=== PATIENT | male | born 1965 | race Caucasian/White ===

== ENCOUNTER 2020-11-15 19:29 | Observation (INO) ==
[2020-11-15] MEDS ORDERED: Morphine Sulfate 2 MG/ML SYRINGE IVP PRN (20:05)
[2020-11-15] MEDS ORDERED: Tdap (Boostrix) Vaccine 0.5 ML SYRINGE IM ONE (20:07)
[2020-11-15 20:16] LABS: Basophils # 0.1 K/mcL (0.0-0.2); Basophils % 1.4 %; Eosinophils % 0.4 %; Hematocrit 40.9 % (37.5-50.1); Immature Granulocytes % 0.4 % (0-4); Lymphocytes # 1.6 K/mcL (0.6-4.6); Lymphocytes % 23.2 %; Mean Corpuscular HGB Conc 34.2 g/dL (31.6-35.5); Mean Corpuscular Hemoglobin 34.5 pg (28.0-33.3); Mean Corpuscular Volume 100.7 fL (83.0-100.0); Mean Platelet Volume 10.2 fL (9.4-12.4); Monocytes # 0.6 K/mcL (0.0-1.3); Monocytes % 8.8 %; Neutrophils # 4.7 K/mcL (1.6-8.9); Platelet Count 208 K/mcL (140-400); Red Blood Count 4.06 M/mcL (4.19-5.50); Red Cell Distribution Width 13.3 % (11.5-14.5); Segmented Neutrophils % 65.8 %; White Blood Count 7.1 K/mcL (4.3-11.1)
[2020-11-15 20:17] LABS: Prothrombin Time 11.5 Seconds (9.4-12.1)
[2020-11-15 20:19] LABS: Activated Partial Thrombo Time 29.5 Seconds (26.0-36.0)
[2020-11-15 20:35] LABS: Alanine Aminotransferase 39 Units/L (7-52); Albumin 3.7 g/dL (3.5-5.7); Albumin/Globulin Ratio 1.3 (1.1-2.2); Alkaline Phosphatase 57 Units/L (34-104); Aspartate Amino Transferase 27 Units/L (13-39); BUN/Creatinine Ratio 8 (6-26); Bilirubin,Direct 0.2 mg/dL (0.0-0.2); Bilirubin,Indirect 0.5 mg/dL (0.0-1.0); Bilirubin,Total 0.7 mg/dL (0.3-1.0); Blood Urea Nitrogen 5 mg/dL (6-20); Calcium 8.6 mg/dL (8.6-10.3); Carbon Dioxide 21 mEq/L (23-29); Chloride 104 mEq/L (98-107); Ethanol 126 mg/dL (Less than 10); Globulin 2.8 g/dL (2.4-3.5); Glucose 94 mg/dL (70-105); Lipase 38 Units/L (11-82); Osmolality,Calculated 283 (280-300); Sodium 138 mEq/L (136-145); Total Protein 6.5 g/dL (6.4-8.9); Troponin I < 0.03 ng/mL (< 0.04); eGFR For African Americans > 60 (> 60); eGFR For Non-African Americans > 60 (> 60)
[2020-11-15] MEDS ORDERED: levoFLOXacin 750 MG TABLET PO ONE (20:43)
[2020-11-15] MEDS ORDERED: metroNIDAZOLE 500 MG TABLET PO ONE (20:43)
[2020-11-15] MEDS ORDERED: Naloxone 0.4 MG/ML INJ IVP PRN (22:10)
[2020-11-15] MEDS ORDERED: Ondansetron ODT 4 MG TAB.RAPDIS SL PRN (22:10)
[2020-11-15] MEDS ORDERED: 0.9 % Sodium Chloride 1,000 ML IVC SCH (22:15)
[2020-11-15] MEDS ORDERED: Ipratropium/Albuterol Neb 3 ML IH PRN (22:18)
[2020-11-15] MEDS ORDERED: *HR* LORazepam 2 MG/ML VIAL IVP PRN (22:18)
[2020-11-15] MEDS: Folic Acid 1 MG TABLET PO SCH (23:35)
[2020-11-15] MEDS: Thiamine (B-1) 100 MG TABLET PO SCH (23:35)
[2020-11-15] MEDS ORDERED: Prochlorperazine 10 MG/2 ML VIAL IVP PRN (23:56)
[2020-11-16] MEDS ORDERED: MetroNIDAZOLE 500 MG/100 ML 500 MG/100 ML BAG IVPB SCH
[2020-11-16] MEDS: *HR* LORazepam 2 MG/ML VIAL IVP PRN (00:10)
[2020-11-16] MEDS: Folic Acid 1 MG TABLET PO SCH ×2 (00:38→09:24)
[2020-11-16] MEDS: Thiamine (B-1) 100 MG TABLET PO SCH ×2 (00:39→09:24)
[2020-11-16 03:17] LABS: Basophils # 0.1 K/mcL (0.0-0.2); Eosinophils % 0.3 %; Hematocrit 40.2 % (37.5-50.1); Hemoglobin 13.9 g/dL (12.9-16.9); Immature Granulocytes % 0.6 % (0-4); Lymphocytes % 13.7 %; Mean Corpuscular HGB Conc 34.6 g/dL (31.6-35.5); Mean Corpuscular Hemoglobin 34.9 pg (28.0-33.3); Mean Platelet Volume 10.5 fL (9.4-12.4); Monocytes # 0.7 K/mcL (0.0-1.3); Monocytes % 10.3 %; Neutrophils # 5.2 K/mcL (1.6-8.9); Platelet Count 207 K/mcL (140-400); Red Blood Count 3.98 M/mcL (4.19-5.50); Red Cell Distribution Width 13.3 % (11.5-14.5); Segmented Neutrophils % 74.1 %
[2020-11-16 03:19] LABS: Prothrombin Time 11.7 Seconds (9.4-12.1)
[2020-11-16 03:36] LABS: BUN/Creatinine Ratio 8 (6-26); Blood Urea Nitrogen 5 mg/dL (6-20); Calcium 8.6 mg/dL (8.6-10.3); Carbon Dioxide 24 mEq/L (23-29); Chloride 103 mEq/L (98-107); Ethanol < 10 mg/dL (Less than 10); Glucose 83 mg/dL (70-105); Magnesium 1.6 mg/dL (1.6-2.6); Osmolality,Calculated 282 (280-300); Phosphorous 3.2 mg/dL (2.7-4.5); Sodium 138 mEq/L (136-145); eGFR For African Americans > 60 (> 60); eGFR For Non-African Americans > 60 (> 60)
[2020-11-16 04:01] LABS: Folate 7.9 ng/mL (3.0-16.0)
[2020-11-16] MEDS: Clindamycin 600 MG/50 ML 600 MG/50 ML IV.SOLN IVPB SCH ×3 (09:24→23:05)
[2020-11-16] MEDS: lisinopriL 10 MG TABLET PO SCH (09:24)
[2020-11-16] MEDS: Nicotine 21 MG PATCH.TD24 TD SCH (10:27)
[2020-11-16] MEDS ORDERED: Perflutren Lipid Microsphere 1.3 ML in 0.9 % Sodium Chloride 8.7 ML IVP PRN (12:07)
[2020-11-16] MEDS ORDERED: *HR* LORazepam 2 MG/ML VIAL IVP PRN (12:23)
[2020-11-17] MEDS: *HR* LORazepam 2 MG/ML VIAL IVP PRN (00:13)
[2020-11-17] MEDS: Folic Acid 1 MG TABLET PO SCH (07:58)
[2020-11-17] MEDS: Thiamine (B-1) 100 MG TABLET PO SCH (07:58)
[2020-11-17] MEDS: lisinopriL 10 MG TABLET PO SCH (07:58)
[2020-11-17] MEDS: Nicotine 21 MG PATCH.TD24 TD SCH (07:58)
[2020-11-17] MEDS: Clindamycin 600 MG/50 ML 600 MG/50 ML IV.SOLN IVPB SCH (07:59)
[2020-11-17 09:32] VITALS: BP 149/96
== END 2020-11-17 10:49 | disposition home or self-care (01) ==
LOC: 3ANU 19:29 → EMEROOARM 19:29 → SUATTDRO 21:35 → 3ANU 22:06
PROVIDERS: ADMIT Student in an Organized Health Care Education/Training Program; ATTEND Internal Medicine